=== PATIENT | female | born 1940 | race Caucasian/White ===

== ENCOUNTER 2017-06-11 18:12 | Emergency (ER) | payer MEDICARE, OTHER ==
[~2017-06-11] VITALS: Ht 165.1 cm; Wt 65.8 kg
[~2017-06-11 18:12] MED LIST: ACID RELIEF PO; ALL DAY ALLERGY10 M1 PO; ALUM320SU PO; AMLO5; AMLO5 PO; ARCAPTA NEOHAL75 MCG INH; ASCO1ER; ASPI81EC; Albuterol2.5 MG/0.5 INH; Augmentin 875-1 EACH PO; BUDE10.22 INH; BUME1 PO; Biotin1 MG PO; CARV6.25 PO; CEPH500 PO; CETI10; CHOL10002 PO; CLON.1 PO; CLON.2TP TOP; CLON.5 PO; CLOP75 PO; CYAN1000 PO; Coumadin3 MG PO; DEXL60CA3 PO; DICL25ER; Desyrel50 MG PO; FISH1000; FLUSAL2505; FURO40; FURO40 PO; HYDMOR2 PO; LEVSOD88 PO; LOSA25 PO; LOSA50; Lopressor 25 mg25 MG PO; MECL12.5 PO; MEGA BIOTIN10000 MCG PO; METO50ER; MIRT15 PO; Mag-Al Liquid30 ML PO; Norco 5-325 Ta1 EACH PO; OXYC10TA19 PO; PARO10 PO; POTCHL10ER; POTCHL10ER PO; POTCHL20ER PO; PRED20 PO; PROM25 PO; Prilosec Otc20 MG PO; Prinivil10 MG PO; RANI150 PO; ROSU10TA; SIMV40 PO; SPIR25; SPIR25 PO; SUCR1 PO; Simvastatin40 MG PO; TIOT18; TORSE20 PO; TRAM50 PO; TRAZ50; TRAZ50 PO; VENL75; Valium10 MG PO; Valium5 MG PO; Vitamin B Comple1 EA PO; WARF3 PO; XARELTO15 MG PO; Zantac150 MG PO; Zofran Odt4 MG PO; Zofran Odt4 MG SL; Zofran Odt8 MG SL
[2018-02-10] MEDS ORDERED: Percocet 5-3251 EACH PO (05:18)
[2018-04-09] MEDS ORDERED: METPRE4DP PO (19:31)
[2018-04-09] MEDS ORDERED: HYDR1TAB94 PO (19:31)
== END 2017-06-11 19:48 | disposition home or self-care (01) ==
LOC: ER 18:12
DX: S06.0X1A Concussion with loss of consciousness of 30 minutes or less, initial encounter (principal); S00.83XA Contusion of other part of head, initial encounter; I48.91 Unspecified atrial fibrillation; J44.9 Chronic obstructive pulmonary disease, unspecified; E03.9 Hypothyroidism, unspecified; E78.5 Hyperlipidemia, unspecified; Z86.718 Personal history of other venous thrombosis and embolism; W22.8XXA Striking against or struck by other objects, initial encounter
CPT/HCPCS: 70450; 73030; 73130; 96374; 96375; 99284; J2405; J3010

== ENCOUNTER 2017-08-22 07:27 | Inpatient (IN) | payer MEDICARE, OTHER ==
[~2017-08-22] VITALS: Ht 162.6 cm; Wt 79.6 kg
[2017-08-22 08:22] LABS: BASOPHILS ABSOLUTE AUTO 0.05 K/mm3 (0.00-0.23); BASOPHILS PERCENT AUTO 1 % (0-2); EOSINOPHILS ABSOLUTE AUTO 0.11 K/mm3 (0.00-0.68); EOSINOPHILS PERCENT AUTO 1 % (0-6); Hematocrit 41.5 % (33.0-51.0); Hemoglobin 13.2 g/dL (11.5-16.0); IMMATURE GRAN ABSOLUTE AUTO 0.18 K/mm3 (0.00-0.10); IMMATURE GRAN PERCENT AUTO 2 % (0-1); LYMPHOCYTES ABSOLUTE AUTO 1.17 K/mm3 (0.84-5.20); LYMPHOCYTES PERCENT AUTO 11 % (21-46); MONOCYTES ABSOLUTE AUTO 0.61 K/mm3 (0.16-1.47); MONOCYTES PERCENT AUTO 6 % (4-13); Mean Corpuscular HGB 30.3 pg (26.0-34.0); Mean Corpuscular HGB Conc 31.8 g/dL (31.5-36.5); Mean Corpuscular Volume 95 fL (80-100); NEUTROPHILS ABSOLUTE AUTO 8.43 K/mm3 (1.96-9.15); NEUTROPHILS PERCENT AUTO 80 % (41-73); Platelet Count 163 K/mm3 (150-400); RDW Coefficient Variation 14.6 % (11.7-14.2); RDW Standard Deviation 50.8 fL (35.1-46.3); Red Blood Cell Count 4.35 M/mm3 (3.80-5.20); White Blood Cell Count 10.55 K/mm3 (4.00-11.30)
[2017-08-22 08:43] LABS: Albumin, Blood 3.6 g/dL (3.4-5.0); Albumin/Globulin Ratio 0.9 (0.8-1.8); Bilirubin, Total 0.6 mg/dL (0.1-1.0); Bun/Creatinine Ratio 18.8 (12.0-20.0); Calcium, Blood 9.7 mg/dL (8.5-10.1); Creatinine, Blood 1.01 mg/dL (0.40-1.00); Globulin, Blood 3.9 g/dL (2.2-4.0); Potassium, Blood 4.3 mmol/L (3.5-5.5); Total Protein, Blood 7.5 g/dL (6.4-8.2); Troponin I 0.02 ng/mL (0.000-0.040)
[2017-08-22] MEDS ORDERED: IRON160 M1 PO (11:54)
[2017-08-22] MEDS ORDERED: ABAT250V (11:57)
[2017-08-22] MEDS ORDERED: PRED10 PO (11:57)
[2017-08-22] MEDS ORDERED: HYDR1TAB94 PO (11:57)
[2017-08-22] MEDS ORDERED: ESCI20 PO (12:03)
[2017-08-23 04:58] LABS: BASOPHILS ABSOLUTE AUTO 0.01 K/mm3 (0.00-0.23); BASOPHILS PERCENT AUTO 0 % (0-2); EOSINOPHILS PERCENT AUTO 0 % (0-6); Hematocrit 39.6 % (33.0-51.0); IMMATURE GRAN ABSOLUTE AUTO 0.11 K/mm3 (0.00-0.10); IMMATURE GRAN PERCENT AUTO 1 % (0-1); LYMPHOCYTES ABSOLUTE AUTO 0.72 K/mm3 (0.84-5.20); LYMPHOCYTES PERCENT AUTO 8 % (21-46); MONOCYTES ABSOLUTE AUTO 0.17 K/mm3 (0.16-1.47); MONOCYTES PERCENT AUTO 2 % (4-13); Mean Corpuscular HGB 30.2 pg (26.0-34.0); Mean Corpuscular HGB Conc 32.8 g/dL (31.5-36.5); Mean Platelet Volume 9.7 fL (9.1-12.4); NEUTROPHILS ABSOLUTE AUTO 8.37 K/mm3 (1.96-9.15); NEUTROPHILS PERCENT AUTO 89 % (41-73); Platelet Count 142 K/mm3 (150-400); RDW Coefficient Variation 14.6 % (11.7-14.2); RDW Standard Deviation 49.7 fL (35.1-46.3); White Blood Cell Count 9.38 K/mm3 (4.00-11.30)
[2017-08-23 04:59] LABS: Mean Corpuscular Volume 92 fL (80-100)
[2017-08-23 05:22] LABS: Albumin, Blood 3.3 g/dL (3.4-5.0); Anion Gap 5 mmol/L (6-16); Blood Urea Nitrogen 16 mg/dL (8-24); Bun/Creatinine Ratio 19.2 (12.0-20.0); CO2, Blood 35 mmol/L (21-32); Calcium, Blood 10.1 mg/dL (8.5-10.1); Chloride, Blood 97 mmol/L (98-108); Creatinine, Blood 0.84 mg/dL (0.40-1.00); Glomerular Filtration Rate >60 (60-); Glucose, Blood 139 mg/dL (70-99); Potassium, Blood 3.6 mmol/L (3.5-5.5); Sodium, Blood 137 mmol/L (136-145)
[2017-08-24 05:30] LABS: BASOPHILS ABSOLUTE AUTO 0.01 K/mm3 (0.00-0.23); BASOPHILS PERCENT AUTO 0 % (0-2); EOSINOPHILS PERCENT AUTO 0 % (0-6); Hematocrit 38.4 % (33.0-51.0); Hemoglobin 12.6 g/dL (11.5-16.0); IMMATURE GRAN ABSOLUTE AUTO 0.09 K/mm3 (0.00-0.10); IMMATURE GRAN PERCENT AUTO 1 % (0-1); LYMPHOCYTES PERCENT AUTO 6 % (21-46); MONOCYTES ABSOLUTE AUTO 0.32 K/mm3 (0.16-1.47); MONOCYTES PERCENT AUTO 3 % (4-13); Mean Corpuscular HGB 30.2 pg (26.0-34.0); Mean Corpuscular HGB Conc 32.8 g/dL (31.5-36.5); Mean Corpuscular Volume 92 fL (80-100); Mean Platelet Volume 9.5 fL (9.1-12.4); NEUTROPHILS ABSOLUTE AUTO 10.27 K/mm3 (1.96-9.15); NEUTROPHILS PERCENT AUTO 90 % (41-73); Platelet Count 146 K/mm3 (150-400); RDW Coefficient Variation 14.6 % (11.7-14.2); RDW Standard Deviation 49.1 fL (35.1-46.3); Red Blood Cell Count 4.17 M/mm3 (3.80-5.20); White Blood Cell Count 11.39 K/mm3 (4.00-11.30)
[2017-08-24 05:43] LABS: Anion Gap 6 mmol/L (6-16); Blood Urea Nitrogen 22 mg/dL (8-24); Bun/Creatinine Ratio 30.5 (12.0-20.0); CO2, Blood 36 mmol/L (21-32); Calcium, Blood 9.8 mg/dL (8.5-10.1); Chloride, Blood 94 mmol/L (98-108); Creatinine, Blood 0.72 mg/dL (0.40-1.00); Glomerular Filtration Rate >60 (60-); Glucose, Blood 131 mg/dL (70-99); Potassium, Blood 3.3 mmol/L (3.5-5.5); Sodium, Blood 136 mmol/L (136-145)
[2017-08-25 06:17] LABS: BASOPHILS ABSOLUTE AUTO 0.01 K/mm3 (0.00-0.23); BASOPHILS PERCENT AUTO 0 % (0-2); EOSINOPHILS PERCENT AUTO 0 % (0-6); Hematocrit 37.4 % (33.0-51.0); Hemoglobin 12.1 g/dL (11.5-16.0); IMMATURE GRAN ABSOLUTE AUTO 0.06 K/mm3 (0.00-0.10); IMMATURE GRAN PERCENT AUTO 1 % (0-1); LYMPHOCYTES ABSOLUTE AUTO 0.55 K/mm3 (0.84-5.20); LYMPHOCYTES PERCENT AUTO 6 % (21-46); MONOCYTES ABSOLUTE AUTO 0.37 K/mm3 (0.16-1.47); MONOCYTES PERCENT AUTO 4 % (4-13); Mean Corpuscular HGB Conc 32.4 g/dL (31.5-36.5); Mean Corpuscular Volume 93 fL (80-100); Mean Platelet Volume 10.1 fL (9.1-12.4); NEUTROPHILS ABSOLUTE AUTO 8.47 K/mm3 (1.96-9.15); NEUTROPHILS PERCENT AUTO 90 % (41-73); Platelet Count 144 K/mm3 (150-400); RDW Coefficient Variation 14.5 % (11.7-14.2); RDW Standard Deviation 49.7 fL (35.1-46.3); Red Blood Cell Count 4.03 M/mm3 (3.80-5.20); White Blood Cell Count 9.46 K/mm3 (4.00-11.30)
[2017-08-25 06:33] LABS: Anion Gap 6 mmol/L (6-16); Blood Urea Nitrogen 29 mg/dL (8-24); Bun/Creatinine Ratio 38.8 (12.0-20.0); CO2, Blood 37 mmol/L (21-32); Chloride, Blood 94 mmol/L (98-108); Creatinine, Blood 0.75 mg/dL (0.40-1.00); Glomerular Filtration Rate >60 (60-); Glucose, Blood 149 mg/dL (70-99); Potassium, Blood 3.3 mmol/L (3.5-5.5); Sodium, Blood 137 mmol/L (136-145)
[2017-08-25] MEDS ORDERED: ACET325 PO (11:45)
[2017-08-25] MEDS ORDERED: GUAI600T33 PO (11:45)
[2017-08-25] MEDS ORDERED: GABA300 (11:46)
[2017-08-25] MEDS ORDERED: ALBU3IS INH (11:46)
[2017-08-25] MEDS ORDERED: SACC250C PO (11:47)
[2017-08-25] MEDS ORDERED: LIDOCAINE1 EACH TOP (11:47)
[2017-08-25] MEDS ORDERED: AZIT250 PO (11:48)
[2017-08-25] MEDS ORDERED: Zanaflex4 M1 PO (11:48)
[2017-08-25] MEDS ORDERED: CEFP200 PO (11:49)
[2017-08-25] MEDS ORDERED: TRAM50 PO (11:50)
== END 2017-08-25 15:08 | disposition home health service (06) | DRG 193 ==
LOC: ER 07:27 → MEDS 10:28 → ENPENDDIS 08-25 12:00 → MEDS 08-25 15:08
PROVIDERS: Emergency Medicine; Hospitalist
DX: J18.9 Pneumonia, unspecified organism (principal); J96.21 Acute and chronic respiratory failure with hypoxia; J91.8 Pleural effusion in other conditions classified elsewhere; J44.0 Chronic obstructive pulmonary disease with (acute) lower respiratory infection; J44.1 Chronic obstructive pulmonary disease with (acute) exacerbation; I25.10 Atherosclerotic heart disease of native coronary artery without angina pectoris; K21.9 Gastro-esophageal reflux disease without esophagitis; G47.33 Obstructive sleep apnea (adult) (pediatric); I48.2 Chronic atrial fibrillation; I27.20 Pulmonary hypertension, unspecified; I10 Essential (primary) hypertension; I08.1 Rheumatic disorders of both mitral and tricuspid valves; E78.5 Hyperlipidemia, unspecified; E03.9 Hypothyroidism, unspecified; M54.12 Radiculopathy, cervical region; Z79.01 Long term (current) use of anticoagulants; Z79.899 Other long term (current) drug therapy; Z95.1 Presence of aortocoronary bypass graft; Z86.73 Personal history of transient ischemic attack (TIA), and cerebral infarction without residual deficits; Z86.718 Personal history of other venous thrombosis and embolism; Z87.891 Personal history of nicotine dependence; Z88.5 Allergy status to narcotic agent; Z88.8 Allergy status to other drugs, medicaments and biological substances
CPT/HCPCS: 36415; 71046; 71250; 72040; 73030; 80048; 80053; 80069; 82947; 83880; 84484; 85025; 87070; 87205; 93005; 93010; 94640; 94644; 94660; 94667; 94762; 96365; 96375; 97110; 97116; 97161; 97166; 97530; 97535; 99285; G8978; G8979; G8987; G8988; J0360; J0456; J0696; J2920; J2930; J3010; J7030; J7050

== ENCOUNTER → 2017-08-31 | Outpatient (CLI) | payer MEDICARE, OTHER ==
[~2017-08-31] MED LIST changes: +ABAT250V; +ACET325 PO; +ALBU3IS INH; +AZIT250 PO; +CEFP200 PO; +ESCI20 PO; +GABA300; +GUAI600T33 PO; +HYDR1TAB94 PO; +IRON160 M1 PO; +LIDOCAINE1 EACH TOP; +PRED10 PO; +SACC250C PO; +Zanaflex4 M1 PO
[2017-08-31 16:53] LABS: Hematocrit 39.8 % (33.0-51.0); Hemoglobin 12.4 g/dL (11.5-16.0); Mean Corpuscular HGB 30.4 pg (26.0-34.0); Mean Corpuscular HGB Conc 31.2 g/dL (31.5-36.5); Mean Platelet Volume 9.8 fL (9.1-12.4); Platelet Count 254 K/mm3 (150-400); RDW Coefficient Variation 14.5 % (11.7-14.2); RDW Standard Deviation 51.9 fL (35.1-46.3); Red Blood Cell Count 4.08 M/mm3 (3.80-5.20); White Blood Cell Count 11.69 K/mm3 (4.00-11.30)
[2017-08-31 17:05] LABS: Mean Corpuscular Volume 98 fL (80-100)
[2017-08-31 17:15] LABS: Alanine Aminotransfer (ALT/SGP 57 U/L (12-78); Albumin, Blood 3.2 g/dL (3.4-5.0); Albumin/Globulin Ratio 0.8 (0.8-1.8); Alk Phos 75 U/L (50-136); Anion Gap 2 mmol/L (6-16); Aspartate Aminotrans (AST/SGOT 38 U/L (12-37); Bilirubin, Total 0.5 mg/dL (0.1-1.0); Blood Urea Nitrogen 26 mg/dL (8-24); Bun/Creatinine Ratio 31.9 (12.0-20.0); CO2, Blood 40 mmol/L (21-32); Calcium, Blood 10.1 mg/dL (8.5-10.1); Chloride, Blood 95 mmol/L (98-108); Creatinine, Blood 0.82 mg/dL (0.40-1.00); Globulin, Blood 3.8 g/dL (2.2-4.0); Glomerular Filtration Rate >60 (60-); Glucose, Blood 128 mg/dL (70-99); Potassium, Blood 4.8 mmol/L (3.5-5.5); Sodium, Blood 137 mmol/L (136-145)
== END | disposition home or self-care (01) ==
LOC: LAB HH 15:58
PROVIDERS: Family Medicine
DX: J44.9 Chronic obstructive pulmonary disease, unspecified (principal); I50.20 Unspecified systolic (congestive) heart failure
CPT/HCPCS: 80053; 85027

== ENCOUNTER 2017-09-17 16:22 | Emergency (ER) | payer MEDICARE, OTHER ==
[~2017-09-17] VITALS: Ht 160 cm; Wt 68.0 kg
== END 2017-09-17 19:11 | disposition home or self-care (01) ==
LOC: ER 16:22
DX: S00.03XA Contusion of scalp, initial encounter (principal); S70.02XA Contusion of left hip, initial encounter; W18.30XA Fall on same level, unspecified, initial encounter; Z88.5 Allergy status to narcotic agent; Z88.8 Allergy status to other drugs, medicaments and biological substances; Z79.899 Other long term (current) drug therapy; Z79.52 Long term (current) use of systemic steroids; Z79.2 Long term (current) use of antibiotics; J44.9 Chronic obstructive pulmonary disease, unspecified; E03.9 Hypothyroidism, unspecified; I25.2 Old myocardial infarction; Z86.73 Personal history of transient ischemic attack (TIA), and cerebral infarction without residual deficits; Z87.891 Personal history of nicotine dependence
CPT/HCPCS: 36415; 70450; 73502

== ENCOUNTER 2017-10-31 12:38 | Emergency (ER) | payer MEDICARE, OTHER ==
[~2017-10-31] VITALS: Ht 160 cm; Wt 72.1 kg
[2017-10-31 13:23] LABS: BASOPHILS ABSOLUTE AUTO 0.07 K/mm3 (0.00-0.23); BASOPHILS PERCENT AUTO 1 % (0-2); EOSINOPHILS PERCENT AUTO 3 % (0-6); Hematocrit 40.5 % (33.0-51.0); Hemoglobin 12.8 g/dL (11.5-16.0); IMMATURE GRAN ABSOLUTE AUTO 0.05 K/mm3 (0.00-0.10); IMMATURE GRAN PERCENT AUTO 1 % (0-1); LYMPHOCYTES ABSOLUTE AUTO 1.37 K/mm3 (0.84-5.20); LYMPHOCYTES PERCENT AUTO 17 % (21-46); MONOCYTES ABSOLUTE AUTO 0.65 K/mm3 (0.16-1.47); MONOCYTES PERCENT AUTO 8 % (4-13); Mean Corpuscular HGB Conc 31.6 g/dL (31.5-36.5); Mean Corpuscular Volume 95 fL (80-100); Mean Platelet Volume 9.5 fL (9.1-12.4); NEUTROPHILS ABSOLUTE AUTO 5.72 K/mm3 (1.96-9.15); NEUTROPHILS PERCENT AUTO 71 % (41-73); Platelet Count 248 K/mm3 (150-400); RDW Coefficient Variation 13.9 % (11.7-14.2); RDW Standard Deviation 48.4 fL (35.1-46.3); Red Blood Cell Count 4.27 M/mm3 (3.80-5.20); White Blood Cell Count 8.06 K/mm3 (4.00-11.30)
[2017-10-31 13:48] LABS: Alanine Aminotransfer (ALT/SGP 31 U/L (12-78); Albumin, Blood 3.8 g/dL (3.4-5.0); Albumin/Globulin Ratio 1.1 (0.8-1.8); Alk Phos 69 U/L (50-136); Anion Gap 6 mmol/L (6-16); Aspartate Aminotrans (AST/SGOT 21 U/L (12-37); Bilirubin, Total 0.6 mg/dL (0.1-1.0); Blood Urea Nitrogen 19 mg/dL (8-24); Bun/Creatinine Ratio 18.8 (12.0-20.0); CO2, Blood 35 mmol/L (21-32); Calcium, Blood 9.9 mg/dL (8.5-10.1); Chloride, Blood 97 mmol/L (98-108); Creatinine, Blood 1.01 mg/dL (0.40-1.00); Globulin, Blood 3.6 g/dL (2.2-4.0); Glomerular Filtration Rate 56 (60-); Glucose, Blood 97 mg/dL (70-99); Potassium, Blood 3.7 mmol/L (3.5-5.5); Sodium, Blood 138 mmol/L (136-145); Total Protein, Blood 7.4 g/dL (6.4-8.2); Troponin I <0.015 ng/mL (0.000-0.040)
[2017-10-31] MEDS ORDERED: ONDA4ODT MM (14:12)
[2017-10-31] MEDS ORDERED: CLIN150 PO (14:13)
[2017-10-31] MEDS ORDERED: Protonix40 MG PO (15:52)
== END 2017-10-31 16:44 | disposition home or self-care (01) ==
LOC: ER 12:38
PROVIDERS: Emergency Medicine
DX: I48.91 Unspecified atrial fibrillation (principal); R07.0 Pain in throat; J44.9 Chronic obstructive pulmonary disease, unspecified; E03.9 Hypothyroidism, unspecified; I25.2 Old myocardial infarction; Z91.041 Radiographic dye allergy status; Z88.5 Allergy status to narcotic agent; Z88.8 Allergy status to other drugs, medicaments and biological substances; Z79.899 Other long term (current) drug therapy; Z86.73 Personal history of transient ischemic attack (TIA), and cerebral infarction without residual deficits; Z87.891 Personal history of nicotine dependence; Z79.52 Long term (current) use of systemic steroids
CPT/HCPCS: 36415; 71046; 80053; 84484; 85025; 93005; 93010; 99284

== ENCOUNTER → 2018-01-25 | Outpatient (CLI) | payer MEDICARE, OTHER ==
[~2018-01-25] MED LIST changes: +CLIN150 PO; +ONDA4ODT MM; +Protonix40 MG PO
== END | disposition home or self-care (01) ==
LOC: PLD 13:42 → LAB SHORT 13:42
DX: D48.5 Neoplasm of uncertain behavior of skin (principal)
CPT/HCPCS: 88305

== ENCOUNTER 2018-05-09 11:58 | Emergency (ER) | payer MEDICARE, OTHER ==
[~2018-05-09] VITALS: Ht 157.5 cm; Wt 63.5 kg
[~2018-05-09 11:58] MED LIST changes: +METPRE4DP PO; +Percocet 5-3251 EACH PO
[2018-05-09 12:54] LABS: BASOPHILS ABSOLUTE AUTO 0.06 K/mm3 (0.00-0.23); BASOPHILS PERCENT AUTO 1 % (0-2); EOSINOPHILS ABSOLUTE AUTO 0.14 K/mm3 (0.00-0.68); EOSINOPHILS PERCENT AUTO 2 % (0-6); Hematocrit 36.4 % (33.0-51.0); Hemoglobin 10.4 g/dL (11.5-16.0); IMMATURE GRAN ABSOLUTE AUTO 0.03 K/mm3 (0.00-0.10); IMMATURE GRAN PERCENT AUTO 0 % (0-1); LYMPHOCYTES ABSOLUTE AUTO 1.23 K/mm3 (0.84-5.20); LYMPHOCYTES PERCENT AUTO 16 % (21-46); MONOCYTES ABSOLUTE AUTO 0.62 K/mm3 (0.16-1.47); MONOCYTES PERCENT AUTO 8 % (4-13); Mean Corpuscular HGB 24.1 pg (26.0-34.0); Mean Corpuscular HGB Conc 28.6 g/dL (31.5-36.5); Mean Corpuscular Volume 85 fL (80-100); Mean Platelet Volume 10.2 fL (9.1-12.4); NEUTROPHILS ABSOLUTE AUTO 5.87 K/mm3 (1.96-9.15); NEUTROPHILS PERCENT AUTO 74 % (41-73); Platelet Count 206 K/mm3 (150-400); RDW Coefficient Variation 16.7 % (11.7-14.2); RDW Standard Deviation 51.4 fL (35.1-46.3); Red Blood Cell Count 4.31 M/mm3 (3.80-5.20); White Blood Cell Count 7.95 K/mm3 (4.00-11.30)
[2018-05-09 13:06] LABS: Albumin, Blood 3.7 g/dL (3.4-5.0); Albumin/Globulin Ratio 1.1 (0.8-1.8); Bilirubin, Total 0.6 mg/dL (0.1-1.0); Bun/Creatinine Ratio 32.3 (12.0-20.0); Creatinine, Blood 1.24 mg/dL (0.40-1.00); Globulin, Blood 3.5 g/dL (2.2-4.0); Potassium, Blood 4.4 mmol/L (3.5-5.5); Total Protein, Blood 7.2 g/dL (6.4-8.2)
[2018-05-09 13:08] LABS: International Normalized Ratio 1.72; Prothrombin Time Results 17.2 Sec (9.7-11.5)
[2018-05-09] MEDS ORDERED: Ultram50 MG PO (14:22)
[2018-05-09] MEDS ORDERED: Zofran4 MG PO (14:22)
[2018-05-09 14:31] LABS: Bilirubin, Urine Neg (Neg); Blood, Urine 3+ (Neg); Glucose Qualitative, Urine Neg (Neg); Ketones, Urine Neg (Neg); Leukocyte Esterase, Urine 2+ (Neg); Nitrite, Urine Neg (Neg); Protein, Urine 2+ (Neg); Urobilinogen, Urine NORM (Normal)
[2018-05-09 15:11] LABS: Appearance, Urine Hazy (Clear); Color, Urine Yellow (P-Yellow)
[2018-05-09 15:12] LABS: Squamous Epithelial Cells Mod /hpf (Few)
[2018-05-09 15:13] LABS: Bacteria Few /hpf
== END 2018-05-09 14:45 | disposition home or self-care (01) ==
LOC: ER 11:58
PROVIDERS: Emergency Medicine; Physician Assistant
DX: S12.112A Nondisplaced Type II dens fracture, initial encounter for closed fracture (principal); S52.502A Unspecified fracture of the lower end of left radius, initial encounter for closed fracture; S00.83XA Contusion of other part of head, initial encounter; W18.30XA Fall on same level, unspecified, initial encounter; Z88.5 Allergy status to narcotic agent; Z88.8 Allergy status to other drugs, medicaments and biological substances; Z79.899 Other long term (current) drug therapy; Z79.52 Long term (current) use of systemic steroids; J44.9 Chronic obstructive pulmonary disease, unspecified; E03.9 Hypothyroidism, unspecified; Z86.73 Personal history of transient ischemic attack (TIA), and cerebral infarction without residual deficits; I25.2 Old myocardial infarction; Z95.1 Presence of aortocoronary bypass graft; Z87.891 Personal history of nicotine dependence
CPT/HCPCS: 29125; 36415; 70450; 71045; 72125; 73110; 80053; 81001; 85025; 85610; 85730; 87086; 93005; 93010; 96374; 96375; 99284-25; J1885; J2405; J3010; L0160

== ENCOUNTER → 2018-06-14 | Outpatient (CLI) | payer MEDICARE, OTHER ==
[~2018-06-14] MED LIST changes: +Ultram50 MG PO; +Zofran4 MG PO
[2018-06-14 19:02] LABS: BASOPHILS ABSOLUTE AUTO 0.07 K/mm3 (0.00-0.23); BASOPHILS PERCENT AUTO 1 % (0-2); EOSINOPHILS ABSOLUTE AUTO 0.27 K/mm3 (0.00-0.68); EOSINOPHILS PERCENT AUTO 4 % (0-6); Hemoglobin 11.3 g/dL (11.5-16.0); IMMATURE GRAN ABSOLUTE AUTO 0.03 K/mm3 (0.00-0.10); IMMATURE GRAN PERCENT AUTO 0 % (0-1); LYMPHOCYTES PERCENT AUTO 14 % (21-46); MONOCYTES ABSOLUTE AUTO 0.49 K/mm3 (0.16-1.47); MONOCYTES PERCENT AUTO 7 % (4-13); Mean Corpuscular Volume 83 fL (80-100); Mean Platelet Volume 10.8 fL (9.1-12.4); NEUTROPHILS PERCENT AUTO 73 % (41-73); Platelet Count 288 K/mm3 (150-400); RDW Coefficient Variation 17.6 % (11.7-14.2); RDW Standard Deviation 53.1 fL (35.1-46.3); White Blood Cell Count 6.96 K/mm3 (4.00-11.30)
== END | disposition home or self-care (01) ==
LOC: LAB 18:11 → LAB HH 18:11
PROVIDERS: Family Medicine
DX: Z79.01 Long term (current) use of anticoagulants (principal); Z51.81 Encounter for therapeutic drug level monitoring; T45.515A Adverse effect of anticoagulants, initial encounter; I48.91 Unspecified atrial fibrillation; S12.112D Nondisplaced Type II dens fracture, subsequent encounter for fracture with routine healing
CPT/HCPCS: 82728; 83540; 83550; 85025

== ENCOUNTER 2018-07-08 00:59 | Inpatient (IN) | payer MEDICARE, OTHER ==
[~2018-07-08] VITALS: Ht 160 cm; Wt 77.2 kg
[~2018-07-08 00:59] MED LIST changes: -Desyrel50 MG PO; +TRAZ100 PO
[2018-07-08 02:54] LABS: BASOPHILS ABSOLUTE AUTO 0.08 K/mm3 (0.00-0.23); BASOPHILS PERCENT AUTO 1 % (0-2); EOSINOPHILS ABSOLUTE AUTO 0.26 K/mm3 (0.00-0.68); EOSINOPHILS PERCENT AUTO 2 % (0-6); Hematocrit 24.6 % (33.0-51.0); Hemoglobin 7.2 g/dL (11.5-16.0); IMMATURE GRAN ABSOLUTE AUTO 0.07 K/mm3 (0.00-0.10); IMMATURE GRAN PERCENT AUTO 1 % (0-1); LYMPHOCYTES ABSOLUTE AUTO 1.21 K/mm3 (0.84-5.20); LYMPHOCYTES PERCENT AUTO 11 % (21-46); MONOCYTES ABSOLUTE AUTO 0.72 K/mm3 (0.16-1.47); MONOCYTES PERCENT AUTO 7 % (4-13); Mean Corpuscular HGB 24.6 pg (26.0-34.0); Mean Corpuscular HGB Conc 29.3 g/dL (31.5-36.5); Mean Corpuscular Volume 84 fL (80-100); Mean Platelet Volume 9.7 fL (9.1-12.4); NEUTROPHILS ABSOLUTE AUTO 8.76 K/mm3 (1.96-9.15); NEUTROPHILS PERCENT AUTO 79 % (41-73); Platelet Count 334 K/mm3 (150-400); RDW Standard Deviation 55.1 fL (35.1-46.3); Red Blood Cell Count 2.93 M/mm3 (3.80-5.20)
[2018-07-08 03:06] LABS: Albumin, Blood 3.1 g/dL (3.4-5.0); Bilirubin, Total 0.7 mg/dL (0.1-1.0); Bun/Creatinine Ratio 41.6 (12.0-20.0); Creatinine, Blood 1.13 mg/dL (0.40-1.00); Potassium, Blood 5.1 mmol/L (3.5-5.5); Total Protein, Blood 6.1 g/dL (6.4-8.2)
[2018-07-08 03:52] LABS: Source, Urine Clean Catch
[2018-07-08 03:54] LABS: Bilirubin, Urine Neg (Neg); Blood, Urine 5+ (Neg); Glucose Qualitative, Urine Neg (Neg); Ketones, Urine Neg (Neg); Leukocyte Esterase, Urine Neg (Neg); Nitrite, Urine Neg (Neg); Protein, Urine 1+ (Neg); Urobilinogen, Urine NORM (Normal)
[2018-07-08 04:10] LABS: Appearance, Urine Hazy (Clear); Color, Urine Yellow (P-Yellow)
[2018-07-08 04:11] LABS: Amorphous Light (0-Heavy); Bacteria Few /hpf; Red Blood Cells, Urine 0-2 /hpf (0-2); Squamous Epithelial Cells Few /hpf (Few); White Blood Cells, Urine Rare /hpf (0-5)
[2018-07-08 05:53] LABS: BASOPHILS ABSOLUTE AUTO 0.08 K/mm3 (0.00-0.23); BASOPHILS PERCENT AUTO 1 % (0-2); EOSINOPHILS ABSOLUTE AUTO 0.15 K/mm3 (0.00-0.68); EOSINOPHILS PERCENT AUTO 2 % (0-6); Hematocrit 20.5 % (33.0-51.0); IMMATURE GRAN ABSOLUTE AUTO 0.09 K/mm3 (0.00-0.10); IMMATURE GRAN PERCENT AUTO 1 % (0-1); LYMPHOCYTES PERCENT AUTO 16 % (21-46); MONOCYTES ABSOLUTE AUTO 0.51 K/mm3 (0.16-1.47); MONOCYTES PERCENT AUTO 5 % (4-13); Mean Corpuscular HGB 24.5 pg (26.0-34.0); Mean Corpuscular HGB Conc 29.3 g/dL (31.5-36.5); Mean Corpuscular Volume 84 fL (80-100); Mean Platelet Volume 9.6 fL (9.1-12.4); NEUTROPHILS ABSOLUTE AUTO 7.74 K/mm3 (1.96-9.15); NEUTROPHILS PERCENT AUTO 76 % (41-73); NRBC ABSOLUTE 0.03 K/mm3 (0.00-0.02); NRBC Auto 0.3 /100 WBC (0.0-0.2); Platelet Count 303 K/mm3 (150-400); RDW Standard Deviation 55.4 fL (35.1-46.3); Red Blood Cell Count 2.45 M/mm3 (3.80-5.20); White Blood Cell Count 10.17 K/mm3 (4.00-11.30)
[2018-07-08 06:32] LABS: Anion Gap 8 mmol/L (6-16); Blood Urea Nitrogen 45 mg/dL (8-24); Bun/Creatinine Ratio 47.3 (12.0-20.0); CO2, Blood 28 mmol/L (21-32); Calcium, Blood 8.6 mg/dL (8.5-10.1); Chloride, Blood 105 mmol/L (98-108); Creatinine, Blood 0.95 mg/dL (0.40-1.00); Glomerular Filtration Rate >60 (60-); Glucose, Blood 116 mg/dL (70-99); Potassium, Blood 5.1 mmol/L (3.5-5.5); Sodium, Blood 141 mmol/L (136-145)
[2018-07-08 06:35] LABS: Percent Saturation 5.9 % (15.0-50.0)
[2018-07-08 07:30] LABS: BASOPHILS ABSOLUTE AUTO 0.05 K/mm3 (0.00-0.23); BASOPHILS PERCENT AUTO 1 % (0-2); EOSINOPHILS ABSOLUTE AUTO 0.07 K/mm3 (0.00-0.68); EOSINOPHILS PERCENT AUTO 1 % (0-6); Hematocrit 21.4 % (33.0-51.0); Hemoglobin 6.2 g/dL (11.5-16.0); IMMATURE GRAN ABSOLUTE AUTO 0.06 K/mm3 (0.00-0.10); IMMATURE GRAN PERCENT AUTO 1 % (0-1); LYMPHOCYTES ABSOLUTE AUTO 1.17 K/mm3 (0.84-5.20); LYMPHOCYTES PERCENT AUTO 14 % (21-46); MONOCYTES ABSOLUTE AUTO 0.39 K/mm3 (0.16-1.47); MONOCYTES PERCENT AUTO 5 % (4-13); Mean Corpuscular HGB 24.6 pg (26.0-34.0); Mean Corpuscular Volume 85 fL (80-100); Mean Platelet Volume 9.5 fL (9.1-12.4); NEUTROPHILS ABSOLUTE AUTO 6.78 K/mm3 (1.96-9.15); NEUTROPHILS PERCENT AUTO 80 % (41-73); Platelet Count 278 K/mm3 (150-400); RDW Coefficient Variation 18.1 % (11.7-14.2); RDW Standard Deviation 56.1 fL (35.1-46.3); Red Blood Cell Count 2.52 M/mm3 (3.80-5.20); White Blood Cell Count 8.52 K/mm3 (4.00-11.30)
[2018-07-08 07:30] LABS: Calcium, Ionized (POC) 1.14 mmol/L (1.10-1.46); Chloride (POC) 98 mmol/L (98-108); Creatinine (POC) 1.1 mg/dL (0.6-1.0); Glucose (ISTAT POC) 120 mg/dL (70-99); Hemoglobin (POC) 6.5 g/dL (12.0-16.0); Potassium (POC) 5.1 mmol/L (3.5-5.5); Sodium (POC) 139 mmol/L (135-148); Total CO2 (POC) 30 mmol/L (21-32)
[2018-07-08] MEDS ORDERED: ONDA4 PO (11:07)
[2018-07-08] MEDS ORDERED: TRAM50 PO (11:26)
[2018-07-08 12:53] LABS: Hematocrit 20.5 % (33.0-51.0); Hemoglobin 6.2 g/dL (11.5-16.0)
--- NOTE | 2018-07-08 16:05 | NUR ---
PT HAS BEEN RECEIVING PRBC'S, THIS IS THE 2ND BAG TO INFUSE. PT'S VS HAVE REMAINED STABLE THROUGHOUT 2ND BAG INFUSION. PT CONTINUING TO BREATHE EASILY, PT RESTING IN BED. ERIBAN SITTING AT BEDSIDE THROUGHOUT WHOLE INFUSION. MELENA BOWEL MOVEMENTS HAVE DECREASED SINCE ADMISSION TO PCU. WILL CONTINUE TO MONITOR FOR REACTION TO BLOOD TRANSFUSION.
--- NOTE | 2018-07-08 17:58 | NUR ---
END OF SHIFT SUMMARY PT HAS HAD MULTIPLE DARK RED WATERY STOOLS WITH JELLOW CONSISTENCY CHUNKS. PT HAS BEEN ABLE TO GET TO BSC W/ STAFF ASSISTANCE FOR THIS. 2 PBRC'S INFUSED. PT'S VS HAVE REMAINED STABKLE DURING INFUSION AND POST INFUSION. PT HAS BEEN C/O OF PAIN IN NECK, HEADACHE, AND IN LEFT ABDOMEN. TREATED WITH SUBLIMAZE IN ED AND TYLENOL 650. DR. LARA HAS BEEN IN ROOM TO ASSESS GIB. [facility], PT WILL BE MADE NPO THIS PM. PT HAS REMAINED ON 2L NC T/O SHIFT. PT IN SOFT NECK COLLAR R/T RECENT FALL. PT IS FORGETFUL BUT VERY COOPERATIVE. PT IS ANXIOUS REGARDING CURRENT HEALTH SITUATION AND HOW SHE IS FEELING. PT C/O OF BEING VERY COLD DESPITE WARM BLANKETS AND TEMP BEING TURNED UP IN ROOM. PT AFEBRILE. PT HAS REMAINED IN AFIB T/O SHIFT, HR SHIFTS AROUND IN 90'S. PT ON CLEAR LIQUID DIET AT THIS TIME. WILL CONTINUE TO MONITOR PT UNTIL END OF SHIFT.
[2018-07-08 19:29] LABS: Hematocrit 21.2 % (33.0-51.0); Hemoglobin 6.6 g/dL (11.5-16.0)
--- NOTE | 2018-07-08 19:50 | NUR ---
ASSUMED CARE PT RESTING IN ROOM, APPEARS ANXIOUS. PER DAY SHIFT PT HAS BEEN ANXIOUS SINCE ARRIVAL TO UNIT. PT FEARFUL ABOUT HER DIAGNOSIS AND CURRENT ILLNESS. PT ALSO REPORTING CHRONIC ARTHRITIC PAIN IN SHOULD, AND KNEES, AND NEW ABD PAIN R/T DIAGNOSIS. RESP EVEN UNLABORED AND SLIGHTLY TACHYPNIC ON RA. SATS >92%. DENIES SOB OR CP. PT IS PALE COOL AND DRY. CALL LIGHT IS IN REACH. BED ALARM IS ON DUE TO PT BEING FORGETFUL OF USING CALL LIGHT FOR HELP TO GET OUT OF BED. PT RECEIVED 2 UNITS OF PRBCS BEFORE SHIFT CHANGE AND HAS BEEN WEAK D/T GI BLEED.
[2018-07-09 03:59] LABS: BASOPHILS ABSOLUTE AUTO 0.06 K/mm3 (0.00-0.23); BASOPHILS PERCENT AUTO 1 % (0-2); EOSINOPHILS ABSOLUTE AUTO 0.05 K/mm3 (0.00-0.68); EOSINOPHILS PERCENT AUTO 1 % (0-6); Hematocrit 25.6 % (33.0-51.0); Hemoglobin 8.2 g/dL (11.5-16.0); IMMATURE GRAN ABSOLUTE AUTO 0.05 K/mm3 (0.00-0.10); IMMATURE GRAN PERCENT AUTO 1 % (0-1); LYMPHOCYTES ABSOLUTE AUTO 1.55 K/mm3 (0.84-5.20); LYMPHOCYTES PERCENT AUTO 16 % (21-46); MONOCYTES ABSOLUTE AUTO 0.99 K/mm3 (0.16-1.47); MONOCYTES PERCENT AUTO 11 % (4-13); Mean Corpuscular HGB 27.7 pg (26.0-34.0); Mean Corpuscular Volume 87 fL (80-100); Mean Platelet Volume 9.5 fL (9.1-12.4); NEUTROPHILS ABSOLUTE AUTO 6.76 K/mm3 (1.96-9.15); NEUTROPHILS PERCENT AUTO 72 % (41-73); NRBC ABSOLUTE 0.05 K/mm3 (0.00-0.02); NRBC Auto 0.5 /100 WBC (0.0-0.2); Platelet Count 196 K/mm3 (150-400); RDW Standard Deviation 50.8 fL (35.1-46.3); Red Blood Cell Count 2.96 M/mm3 (3.80-5.20); White Blood Cell Count 9.46 K/mm3 (4.00-11.30)
[2018-07-09 04:21] LABS: Alanine Aminotransfer (ALT/SGP 13 U/L (12-78); Albumin, Blood 2.7 g/dL (3.4-5.0); Albumin/Globulin Ratio 1.4 (0.8-1.8); Alk Phos 49 U/L (50-136); Anion Gap 6 mmol/L (6-16); Aspartate Aminotrans (AST/SGOT 25 U/L (12-37); Bilirubin, Total 2.1 mg/dL (0.1-1.0); Blood Urea Nitrogen 31 mg/dL (8-24); Bun/Creatinine Ratio 36.7 (12.0-20.0); CO2, Blood 31 mmol/L (21-32); Calcium, Blood 8.7 mg/dL (8.5-10.1); Chloride, Blood 107 mmol/L (98-108); Creatinine, Blood 0.85 mg/dL (0.40-1.00); Glomerular Filtration Rate >60 (60-); Glucose, Blood 129 mg/dL (70-99); Magnesium, Blood 1.5 mg/dL (1.6-2.4); Potassium, Blood 3.8 mmol/L (3.5-5.5); Sodium, Blood 144 mmol/L (136-145); Total Protein, Blood 4.7 g/dL (6.4-8.2)
--- NOTE | 2018-07-09 05:34 | NUR ---
SHIFT SUMMARY PT SLEEPING IN ROOM COMFORTABLY. PT HGB AT SHIFT CHANGE CAME BACK AT 6.6 UP FROM 6.2. PROVIDER CALLED AND QUAN UNIT OF PRBC'S WAS OPRDERED AND ADMINISTERED TO PT. PT TOLERATED BLOOD TRANSFUSION WELL. PT REMAINED AFEBRILE AND LS REMAINED CLEAR T/O. PT DID COMPLAIN OF CHRONIC ARTHRITIS PAIN, AND ABD T/O NIGHT. WAS MEDICATED PER EMAR. PT SPENT MOST OF THE NIGHT IN RECLINER TO ALLOW FOR LEGS TO DANGLE FOR COMFORT. PROTONIX GTT INFUSING IN PIV. PT BACK IN BED THIS AM AFTER PAIN MEDICATION TO TAKE PRESSURE OFF OF COCCYX, WAS NOTED TO BE RED AFTER LAST BM. PT IN BED DEQUAN PILLOW FLOATING UNDER ONE HIP TO REDUCE PRESSURE. BED ALARM ON FOR SAFETY. CALL LIGHT IN REACH.
--- NOTE | 2018-07-09 09:16 | NUR ---
NURSING PCU DAYSHIFT: Assumed care of pt at approx 0700. A/O, cooperative w/care, anxious and fearful at times. C/O chronic discomfort of b/l shoulders, treating w/meds as ordered, k-pad in place. Skin is pale and fragile, chronic rash to BLE. General weakness noted, repositions and transfers w/one staff assist. Tele in place, aflutter w/HR 80's, no c/o CP/pressure, trace BLE edema. L/S cta t/o, O2 sat stable on 2L NC, denies dyspnea, no noted cough. Abd soft this a.m., mildly tender w/palp, BT+, voiding w/o difficulty. PIV x2, protonix gtt infusing. S/O currently at bedside, plan of care discussed. Pt and s/o deny any current needs or questions at this time. Awaiting rounding from PMD and GI, call light in reach, cont to monitor for any changes.
[2018-07-09 10:09] LABS: Hematocrit 23.8 % (33.0-51.0); Hemoglobin 7.6 g/dL (11.5-16.0)
--- NOTE | 2018-07-09 17:41 | NUR ---
NURSING PCU DAYSHIFT SUMMARY: Pt has done well t/o the shift w/no s/s of active bleeding and no melena noted, H/H stable. Family at bedside t/o majority of the day, update provided, plan of care discussed. Seen by GI and PMD, plan for medical management at this time d/t neck fx and c-collar requirement. Pt continues to c/o chronic pain which is being treated w/meds as ordered. Spent much of the shift OOB in a recliner, tolerated well. Pt remains on a CL diet, protonix gtt and clinimix infusing as ordered. Denies any current questions/needs, call light in reach, cont to monitor until rpt is given to NOC RN.
[2018-07-09 17:52] LABS: Hematocrit 25.2 % (33.0-51.0)
[2018-07-10 04:10] LABS: BASOPHILS ABSOLUTE AUTO 0.06 K/mm3 (0.00-0.23); BASOPHILS PERCENT AUTO 1 % (0-2); EOSINOPHILS ABSOLUTE AUTO 0.39 K/mm3 (0.00-0.68); EOSINOPHILS PERCENT AUTO 5 % (0-6); IMMATURE GRAN ABSOLUTE AUTO 0.09 K/mm3 (0.00-0.10); IMMATURE GRAN PERCENT AUTO 1 % (0-1); LYMPHOCYTES ABSOLUTE AUTO 1.28 K/mm3 (0.84-5.20); LYMPHOCYTES PERCENT AUTO 16 % (21-46); MONOCYTES ABSOLUTE AUTO 0.83 K/mm3 (0.16-1.47); MONOCYTES PERCENT AUTO 11 % (4-13); Mean Corpuscular HGB 27.5 pg (26.0-34.0); Mean Corpuscular HGB Conc 30.4 g/dL (31.5-36.5); Mean Corpuscular Volume 90 fL (80-100); Mean Platelet Volume 9.8 fL (9.1-12.4); NEUTROPHILS ABSOLUTE AUTO 5.27 K/mm3 (1.96-9.15); NEUTROPHILS PERCENT AUTO 67 % (41-73); NRBC ABSOLUTE 0.13 K/mm3 (0.00-0.02); NRBC Auto 1.6 /100 WBC (0.0-0.2); Platelet Count 175 K/mm3 (150-400); RDW Coefficient Variation 16.9 % (11.7-14.2); RDW Standard Deviation 55.2 fL (35.1-46.3); Red Blood Cell Count 2.55 M/mm3 (3.80-5.20); White Blood Cell Count 7.92 K/mm3 (4.00-11.30)
[2018-07-10 04:27] LABS: Anion Gap 4 mmol/L (6-16); Blood Urea Nitrogen 25 mg/dL (8-24); Bun/Creatinine Ratio 32.4 (12.0-20.0); CO2, Blood 31 mmol/L (21-32); Calcium, Blood 8.7 mg/dL (8.5-10.1); Chloride, Blood 108 mmol/L (98-108); Creatinine, Blood 0.77 mg/dL (0.40-1.00); Glomerular Filtration Rate >60 (60-); Glucose, Blood 113 mg/dL (70-99); Phosphorus, Blood 2.4 mg/dL (2.5-4.9); Potassium, Blood 4.2 mmol/L (3.5-5.5); Sodium, Blood 143 mmol/L (136-145)
--- NOTE | 2018-07-10 04:45 | NUR ---
PROVIDER CONTACTED- PT WITH DROP IN HEMAGLOBIN TO 7.[address] GOMEZ CONTACTED AND ORDERS RECEIVED TO TRANSFUSE ONE UNIT PRBCS. WILL INPUT ORDER AND ADMINISTER.
--- NOTE | 2018-07-10 06:30 | NUR ---
SHIFT SUMMARY- PT HAS REMAINED AOX4 THROUGHOUT SHIFT. VSS. PLEASANT AND COOPERATIVE WITH CARE. PT CONTINUES TO AMBULATE WITH ONE PERSON ASSIST WITHOUT DIFFICULTY. NO BOWEL MOVEMENTS THROUGHOUT THE NIGHT, REPORTS SLIGHT ABDOMINAL TENDERNESS ONLY ON PALPATION THAT HAS DECREASED SINCE ARRIVAL. DENIES NAUSEA. PT WITH MULTIPLE REPORTS OF PAIN THROUGH NECK, SHOULDERS AND BACK THAT DECREASES WITH ORDERED MEDICATIONS, REPOSITIONING AND HEAT THERAPY. PT HAS RESTED THROUGHOUT SOME OF THE NIGHT. O2 SATS HAVE REMAINED >90% ON 2L VIA NASAL CANNULA. PROTONIX DRIP AND CLINIMIX HAVE CONTINUED TO INFUSE THROUGHOUT THE NIGHT, 1 UNIT PRBC'S INFUSING AT THIS TIME- PT TOLERATING WELL. WILL CONTINUE TO MONITOR AND REPORT TO ONCOMING SHIFT RN. BED IN LOW POSITION, CALL LIGHT IN REACH. BED ALARM SET FOR SAFETY.
--- NOTE | 2018-07-10 14:03 | NUR ---
Spiritual care visit conducted. Patient was lying in bed and alert when I entered the room. Daughter, Cleo, was bedside. Therapeutic alliance was easily established and patient openly shared about her current medical condition, her struggles with her ra and the amazing love and support that surrounds the patient with through her family aand friends. I listened empathically, normalized her experience, facilitated a life review, explored spiritual beliefs, provided a calming presence and provided prayer. Patient responded well and displayed evidence of restored ra and reduced ra.
[2018-07-10 16:21] LABS: Hemoglobin 9.1 g/dL (11.5-16.0)
--- NOTE | 2018-07-10 19:31 | NUR ---
SHIFT SUMMARY PT RESTING IN BED THROUGHOUT THE DAY. ALERT AND ORIENTED X3. C/O NECK / RIGHT SHOULDER / HEAD PAIN 6-8/10, MEDICATED WITH PRN PAIN MEDS. LUNG SOUNDS CLEAR, DIMINISHED BASES. UP TO BEDSIDE COMMODE AND RECLINER THROUGHOUT THE DAY. 1+ PITTING EDEMA TO BLE. PT RECEIVED 1 UNIT PRBCs THIS AM AND TOLERATED WELL. DAUGHTER MENTIONS THAT PT HAS BEEN TEARFUL THROUGHOUT THE DAY. DR. LUCAS NOTIFIED, NEW ORDERS RECEIVED. WILL CONTINUE TO MONITOR.
--- NOTE | 2018-07-11 04:41 | NUR ---
PROVIDER CONTACTED PT CONTINUES TO HAVE MELENA X2 THIS EVENING, NO REPEAT H&H ORDERED FOR THIS AM. DR GOMEZ CONTACTED AND ORDERS RECEIVED FOR RECHECK OF H&H TO ENSURE HGB LEVEL REMAINS >7.5 PROGRESS NOTE.
[2018-07-11 05:34] LABS: Hematocrit 26.8 % (33.0-51.0); Hemoglobin 8.4 g/dL (11.5-16.0)
--- NOTE | 2018-07-11 06:17 | NUR ---
SHIFT SUMMARY- PT HAS REMAINED AOX4 THROUGHOUT SHIFT. VSS. PLEASANT AND COOPERATIVE WITH CARE. PT CONTINUES TO AMBULATE WITH STANDBY ASSIST TO THE BEDSIDE COMMODE WITHOUT DIFFICULTY. PT MEDICATED ONCE FOR PAIN, BUT REPORTS THAT PAIN HAS DECREASED WITH USE OF FOAM MATTRESS ON BED, REPOSITIONING, AND HEAT THERAPY. PT HAD TWO EPISODES OF MELENA THROUGHOUT THE NIGHT, REPEAT H&H DONE THIS AM. O2 SATS HAVE REMIANED >90% ON BASELINE 2L O2 VIA NASAL CANNULA. NO OTHER CHANGES FROM INITIAL ASSESSMENT. WILL CONTINUE TO MONITOR AND REPORT TO ONCOMING SHIFT RN. BED IN LOW POSITION, CALL LIGHT IN REACH.
--- NOTE | 2018-07-11 09:28 | NUR ---
TRANSFER NOTE PT C/O 10/09 RIGHT SHOULDER PAIN, MEDICATED WITH PRN PAIN MEDS, WHICH SEEMED TO HELP. PT STABLE FOR TRANSFER TO MEDICAL FLOOR. REPORT CALLED TO HUAN DOSS ON MEDICAL FLOOR.
--- NOTE | 2018-07-11 10:13 | NUR ---
PT ARRIVED TO UNIT VIA WHEELCHAIR. CLINIMIX RUNNING AT 100 ML/HR. ORDER TO DC CLINIMIX ONCE THI BAG IS COMPLETED. PT COMPLAINS OF RIGHT SHOULDER PAIN, WARM BLANKET IN PLACE. 20 GAUGE IN LEFT FOREARM, SALINE LOCKED. 20 GAUGE IN LEFT UPPER ARM, INFUSING. PT IS ALERT AND ORIENTED AND COOPERATIVE WITH CARE.
--- NOTE | 2018-07-11 17:01 | NUR ---
PT IS ALERT AND ORIENTED AND COOPERATIVE WITH CARE. SHE CALLS APPROPRIATELY. SHE HAD FAMILY VISITING MOST OF THE DAY. SHE LIVES AT HOME WITH HER . SHE HAS COMPLAINED OF RIGHT SHOULDER PAIN TODAY, TREATED PER EMAR, REPOSITIONING AND WITH HEAT THERAPY. SOME BLOOD VISIBLE AFTER A SCANT BM. 2L O2 VIA NC. C-COLLAR IN PLACE. ONE PERSON ASSIST TO BSC. FULL LIQUID DIET, POOR APETTIE TODAY. NO ACUTE CHANGES THIS SHIFT. WILL CONTINUE TO MONITOR.
--- NOTE | 2018-07-12 04:41 | NUR ---
SHIFT SUMMARY PT A/O. VERY EMOTIONAL THIS SHIFT. STARTED OUT SHIFT REPORTING THAT SHE WAS VERY PAINFUL. MEDICATED W/ 2 TABS 5/325 NORCOS AND REPLACED HEATING PAD WITH LARGER HEATING PAD TO COVER THE ENTIRE SURFACE OF HER BACK AND SHOULDERS. AFTER PT'S PAIN WAS IMPROVED SO DID HER MOOD. PT HAS C-COLLAR ON FROM A REPORTED FALL AT HOME BACK IN MAY. MEDICATED PT X 2 WITH 2 TABS NORCO. PT TRANSFERS WELL WITH ONE SBA TO BS. HAD ONE MEDIUM SIZED LOOSE MAROON STOOL. PT VERY CONCERNED ABOUT NOT BEING ABLE TO DO ENDOSCOPY DUE TO C-COLLAR. SOME REDNESS TO PT'S BOTTOM. ENCOURAGED PT TO REPOSITION SELF IN BED MORE FREQUENTLY. VSS. NO OTHER ACUTE CHANGES THIS SHIFT. WILL CONTINUE TO MONITOR AND REPORT TO DAY RN.
[2018-07-12 10:36] LABS: BASOPHILS PERCENT AUTO 1 % (0-2); EOSINOPHILS ABSOLUTE AUTO 0.47 K/mm3 (0.00-0.68); EOSINOPHILS PERCENT AUTO 4 % (0-6); Hematocrit 30.8 % (33.0-51.0); Hemoglobin 9.4 g/dL (11.5-16.0); IMMATURE GRAN ABSOLUTE AUTO 0.53 K/mm3 (0.00-0.10); IMMATURE GRAN PERCENT AUTO 5 % (0-1); LYMPHOCYTES ABSOLUTE AUTO 1.13 K/mm3 (0.84-5.20); LYMPHOCYTES PERCENT AUTO 10 % (21-46); MONOCYTES ABSOLUTE AUTO 0.96 K/mm3 (0.16-1.47); MONOCYTES PERCENT AUTO 9 % (4-13); Mean Corpuscular HGB 28.8 pg (26.0-34.0); Mean Corpuscular HGB Conc 30.5 g/dL (31.5-36.5); Mean Platelet Volume 10.2 fL (9.1-12.4); NEUTROPHILS ABSOLUTE AUTO 8.01 K/mm3 (1.96-9.15); NEUTROPHILS PERCENT AUTO 72 % (41-73); NRBC ABSOLUTE 0.33 K/mm3 (0.00-0.02); NRBC Auto 2.9 /100 WBC (0.0-0.2); Platelet Count 220 K/mm3 (150-400); RDW Coefficient Variation 19.6 % (11.7-14.2); RDW Standard Deviation 56.4 fL (35.1-46.3); Red Blood Cell Count 3.26 M/mm3 (3.80-5.20)
[2018-07-12 10:37] LABS: Mean Corpuscular Volume 95 fL (80-100)
--- NOTE | 2018-07-12 15:45 | NUR ---
RECIEVED CONSENT FROM CLIENT TO PROVIDE AND ASSIST CARE. CC
--- NOTE | 2018-07-12 17:35 | NUR ---
PT IS ALERT AND ORIENTED AND COOPERATIVE WITH CARE. SHE CAN MAKE HER NEEDS KNOWN. PT COMPLAINED OF MOUTH PAIN LAST NIGHT, DR. LUCAS WAS NOTIFIED THIS MORNING AND HE ORDERED XYLOCAINE. SHE COMPLAINED OF SHOULDER PAIN TODAY, TREATED PER EMAR WITH NORCO Q4H. HEATING PAD IN PLACE BEHIND RIGHT SHOULDER. HGB=9.4 THIS MORNING. C-COLLAR IN PLACE. ONE PERSON ASSIST TO BSC. DARK, LOOSE STOOL. DIET CHANGED TO TOLERATED. WILL CONTINUE TO MONITOR.
--- NOTE | 2018-07-13 04:57 | NUR ---
SHIFT SUMMARY PT CONTINUES TO HAVE SHOULDER DISCOMFORT. PT TX PER EMAR AND IS STILL USING K PAD WITH GOOD RESULT. PT HAS SLEPT OFF AND ON. GETTING UP TO USE BSC OCCASIONALLY. PT AT TIMES SITS ON SIDE OF BED DUE TO SHOULDER DISCOMFORT. PT STATES SITTING HELPS WITH DISCOMFORT. PT ALSO IS HAVING CONTINUED TONGUE DISCOMFORT. PT TX PER EMAR. RESULTS ARE GOOD BUT NO LONG ACTING. PT CURRENTLY WATCHING TV AND COMPLAINING OF TONGUE DISCOMFORT. WILL TX ORDERED. CALL LIGHT IN REACH.
[2018-07-13 11:23] LABS: BASOPHILS ABSOLUTE AUTO 0.11 K/mm3 (0.00-0.23); BASOPHILS PERCENT AUTO 1 % (0-2); EOSINOPHILS PERCENT AUTO 2 % (0-6); Hematocrit 32.2 % (33.0-51.0); Hemoglobin 9.6 g/dL (11.5-16.0); IMMATURE GRAN ABSOLUTE AUTO 0.48 K/mm3 (0.00-0.10); IMMATURE GRAN PERCENT AUTO 5 % (0-1); LYMPHOCYTES ABSOLUTE AUTO 1.14 K/mm3 (0.84-5.20); LYMPHOCYTES PERCENT AUTO 12 % (21-46); MONOCYTES PERCENT AUTO 12 % (4-13); Mean Corpuscular HGB 28.8 pg (26.0-34.0); Mean Corpuscular HGB Conc 29.8 g/dL (31.5-36.5); Mean Corpuscular Volume 97 fL (80-100); Mean Platelet Volume 9.9 fL (9.1-12.4); NEUTROPHILS ABSOLUTE AUTO 6.41 K/mm3 (1.96-9.15); NEUTROPHILS PERCENT AUTO 68 % (41-73); NRBC ABSOLUTE 0.39 K/mm3 (0.00-0.02); NRBC Auto 4.1 /100 WBC (0.0-0.2); Platelet Count 219 K/mm3 (150-400); RDW Coefficient Variation 20.6 % (11.7-14.2); RDW Standard Deviation 58.4 fL (35.1-46.3); Red Blood Cell Count 3.33 M/mm3 (3.80-5.20); White Blood Cell Count 9.44 K/mm3 (4.00-11.30)
[2018-07-13 11:41] LABS: Anion Gap 6 mmol/L (6-16); Blood Urea Nitrogen 22 mg/dL (8-24); CO2, Blood 31 mmol/L (21-32); Calcium, Blood 9.3 mg/dL (8.5-10.1); Chloride, Blood 102 mmol/L (98-108); Creatinine, Blood 0.67 mg/dL (0.40-1.00); Glomerular Filtration Rate >60 (60-); Glucose, Blood 102 mg/dL (70-99); Sodium, Blood 139 mmol/L (136-145)
[2018-07-13] MEDS ORDERED: HYDR1TAB94 PO (15:43)
[2018-07-13] MEDS ORDERED: NYST100000 MM (15:46)
[2018-07-13] MEDS ORDERED: Xylocaine5 M1 MM (15:47)
[2018-07-13] MEDS ORDERED: GAVILAX17 GM PO (15:48)
[2018-07-13] MEDS ORDERED: SENN187 PO (15:49)
[2018-07-13] MEDS ORDERED: PANT40 PO (15:49)
[2018-07-13] MEDS ORDERED: PRED5EL MM (15:50)
[2018-07-13] MEDS ORDERED: Carafate1 GM/10 ML PO (15:52)
--- NOTE | 2018-07-13 18:14 | NUR ---
DISCHARGE PT DISCHARGED TO HOME. THIS RN EXPLAINED DISCHARGE INSTRUCTIONS AND MEDICATIONS TO PT AND PT'S DAUGHTER. THEY REPORT THEY UNDERSTAND. IV REMOVED WITHOUT DIFFICULTY. MEDICATIONS FAXED TO [facility]. WRITTEN PRESCRIPTION FOR PAIN MEDICATION GIVEN TO DAUGHTER TO FILL AT PHARMACY. PT TRANSFERRED TO PRIVATE VEHICLE VIA WHEELCHAIR BY [employer]. BELONGINGS WITH PT AND PT'S DAUGHTER.
--- NOTE | 2018-07-14 08:51 | NUR ---
CALL FROM [facility]: SPOKE WITH NATI AT 0745 THIS AM R/T RX WRITTEN BY DR. LUCAS ON 07/13/18 FOR 30 TABLETS OF NORCO 5/325. PER NATI, PT FILLED 120 TABLETS OF THE SAME MEDICATION/STRENGTH ON 07/04/18. PER DR. LUCAS, CANCEL THE 30 TABLETS HE WROTE FOR. SPOKE WITH FAUSTO AT [facility] AT 0850 AND UPDATED HER OF THIS INFORMATION.
== END 2018-07-13 18:12 | disposition home health service (06) | DRG 378 ==
LOC: ER 00:59 → ERHOLD 01:00 → PCU 01:00 → MEDS 07-11 09:54
PROVIDERS: Emergency Medicine; Hospitalist; Internal Medicine; ADMIT Hospitalist
PROC: 30233N1 Transfusion of Nonautologous Red Blood Cells into Peripheral Vein, Percutaneous Approach (ICD-10-PCS; principal; 2018-07-08)
DX: K27.4 Chronic or unspecified peptic ulcer, site unspecified, with hemorrhage (principal); D62 Acute posthemorrhagic anemia; J44.9 Chronic obstructive pulmonary disease, unspecified; E03.9 Hypothyroidism, unspecified; M19.90 Unspecified osteoarthritis, unspecified site; I25.2 Old myocardial infarction; Z86.73 Personal history of transient ischemic attack (TIA), and cerebral infarction without residual deficits; Z95.1 Presence of aortocoronary bypass graft; Z86.718 Personal history of other venous thrombosis and embolism; Z87.891 Personal history of nicotine dependence; I25.10 Atherosclerotic heart disease of native coronary artery without angina pectoris; I48.2 Chronic atrial fibrillation; G47.33 Obstructive sleep apnea (adult) (pediatric); I27.20 Pulmonary hypertension, unspecified; S12.110D Anterior displaced Type II dens fracture, subsequent encounter for fracture with routine healing; E83.42 Hypomagnesemia; E83.39 Other disorders of phosphorus metabolism; Y92.9 Unspecified place or not applicable
CPT/HCPCS: 36415; 36430; 72040; 72125; 80047; 80048; 80053; 81001; 82728; 83540; 83550; 83690; 83735; 84100; 85014; 85018; 85025; 86850; 86900; 86901; 86923; 93005; 93010; 94640; 94760; 96361; 96365; 96366; 96375; 96376; 99285-25; C9113; J2405; J2916; J3010; J3475; J7030; J7050; J7060; J7131; P9016

== ENCOUNTER 2018-07-21 13:52 | Emergency (ER) | payer MEDICARE, OTHER ==
[~2018-07-21] VITALS: Ht 160 cm; Wt 73.9 kg
[~2018-07-21 13:52] MED LIST changes: +Carafate1 GM/10 ML PO; +GAVILAX17 GM PO; +NYST100000 MM; +ONDA4 PO; +PANT40 PO; +PRED5EL MM; +SENN187 PO; +Xylocaine5 M1 MM
[2018-07-21 15:10] LABS: Hemoglobin 10.3 g/dL (11.5-16.0); Red Blood Cell Count 3.62 M/mm3 (3.80-5.20); White Blood Cell Count 4.74 K/mm3 (4.00-11.30)
[2018-07-21 15:11] LABS: BASOPHILS ABSOLUTE AUTO 0.05 K/mm3 (0.00-0.23); BASOPHILS PERCENT AUTO 1 % (0-2); EOSINOPHILS ABSOLUTE AUTO 0.08 K/mm3 (0.00-0.68); EOSINOPHILS PERCENT AUTO 2 % (0-6); IMMATURE GRAN ABSOLUTE AUTO 0.02 K/mm3 (0.00-0.10); IMMATURE GRAN PERCENT AUTO 0 % (0-1); LYMPHOCYTES ABSOLUTE AUTO 0.74 K/mm3 (0.84-5.20); LYMPHOCYTES PERCENT AUTO 16 % (21-46); MONOCYTES ABSOLUTE AUTO 0.32 K/mm3 (0.16-1.47); MONOCYTES PERCENT AUTO 7 % (4-13); Mean Corpuscular HGB 28.5 pg (26.0-34.0); Mean Corpuscular HGB Conc 29.4 g/dL (31.5-36.5); Mean Corpuscular Volume 97 fL (80-100); Mean Platelet Volume 10.8 fL (9.1-12.4); NEUTROPHILS ABSOLUTE AUTO 3.53 K/mm3 (1.96-9.15); NEUTROPHILS PERCENT AUTO 74 % (41-73); Platelet Count 234 K/mm3 (150-400); RDW Coefficient Variation 20.2 % (11.7-14.2); RDW Standard Deviation 69.4 fL (35.1-46.3)
[2018-07-21 15:41] LABS: Alanine Aminotransfer (ALT/SGP 25 U/L (12-78); Albumin, Blood 3.4 g/dL (3.4-5.0); Albumin/Globulin Ratio 1.1 (0.8-1.8); Alk Phos 92 U/L (50-136); Anion Gap 3 mmol/L (6-16); Aspartate Aminotrans (AST/SGOT 23 U/L (12-37); Bilirubin, Total 0.7 mg/dL (0.1-1.0); Blood Urea Nitrogen 21 mg/dL (8-24); Bun/Creatinine Ratio 26.4 (12.0-20.0); CO2, Blood 36 mmol/L (21-32); Calcium, Blood 9.5 mg/dL (8.5-10.1); Chloride, Blood 101 mmol/L (98-108); Globulin, Blood 3.1 g/dL (2.2-4.0); Glomerular Filtration Rate >60 (60-); Glucose, Blood 113 mg/dL (70-99); Potassium, Blood 4.1 mmol/L (3.5-5.5); Sodium, Blood 140 mmol/L (136-145); Total Protein, Blood 6.5 g/dL (6.4-8.2)
== END 2018-07-21 20:34 | disposition home or self-care (01) ==
LOC: ER 13:52
PROVIDERS: Physician Assistant
DX: I87.8 Other specified disorders of veins (principal); Z88.5 Allergy status to narcotic agent; Z88.8 Allergy status to other drugs, medicaments and biological substances; Z91.041 Radiographic dye allergy status; Z79.899 Other long term (current) drug therapy; J44.9 Chronic obstructive pulmonary disease, unspecified; E03.9 Hypothyroidism, unspecified; I25.2 Old myocardial infarction; Z86.73 Personal history of transient ischemic attack (TIA), and cerebral infarction without residual deficits; Z87.891 Personal history of nicotine dependence
CPT/HCPCS: 71046; 80053; 83880; 85025; 93005; 93010; 93970; 96374; 99284-25; J1940

== ENCOUNTER 2018-08-30 12:00 | Day surgery (SDC) | payer MEDICARE, OTHER | END 2018-08-30 22:44 | disposition home or self-care (01) | LOC: WOUND 12:00 | DX: E11.622 Type 2 diabetes mellitus with other skin ulcer (principal); L97.821 Non-pressure chronic ulcer of other part of left lower leg limited to breakdown of skin; L97.811 Non-pressure chronic ulcer of other part of right lower leg limited to breakdown of skin; I87.2 Venous insufficiency (chronic) (peripheral); J44.9 Chronic obstructive pulmonary disease, unspecified; I11.0 Hypertensive heart disease with heart failure; I50.9 Heart failure, unspecified; M06.9 Rheumatoid arthritis, unspecified; M19.90 Unspecified osteoarthritis, unspecified site; G47.33 Obstructive sleep apnea (adult) (pediatric); Z86.73 Personal history of transient ischemic attack (TIA), and cerebral infarction without residual deficits; Z88.8 Allergy status to other drugs, medicaments and biological substances; Z99.3 Dependence on wheelchair; Z87.891 Personal history of nicotine dependence | CPT/HCPCS: G0463 ==

== ENCOUNTER 2018-09-05 12:47 | Day surgery (SDC) | payer MEDICARE, OTHER | END 2018-09-05 23:03 | disposition home or self-care (01) | LOC: WOUND 12:47 | DX: E11.622 Type 2 diabetes mellitus with other skin ulcer (principal); L97.821 Non-pressure chronic ulcer of other part of left lower leg limited to breakdown of skin; L97.811 Non-pressure chronic ulcer of other part of right lower leg limited to breakdown of skin; I87.2 Venous insufficiency (chronic) (peripheral); J44.9 Chronic obstructive pulmonary disease, unspecified; G47.30 Sleep apnea, unspecified; I11.0 Hypertensive heart disease with heart failure; I50.9 Heart failure, unspecified; I25.10 Atherosclerotic heart disease of native coronary artery without angina pectoris; E11.51 Type 2 diabetes mellitus with diabetic peripheral angiopathy without gangrene; M06.9 Rheumatoid arthritis, unspecified; M19.90 Unspecified osteoarthritis, unspecified site ==

== ENCOUNTER 2018-09-07 00:11 | Day surgery (SDC) | payer MEDICARE, OTHER | END 2018-09-07 23:02 | disposition home or self-care (01) | LOC: WOUND 00:11 | DX: L97.821 Non-pressure chronic ulcer of other part of left lower leg limited to breakdown of skin (principal); L97.811 Non-pressure chronic ulcer of other part of right lower leg limited to breakdown of skin; I87.2 Venous insufficiency (chronic) (peripheral); G89.29 Other chronic pain; I10 Essential (primary) hypertension; J44.9 Chronic obstructive pulmonary disease, unspecified; I25.10 Atherosclerotic heart disease of native coronary artery without angina pectoris; G47.33 Obstructive sleep apnea (adult) (pediatric); Z99.3 Dependence on wheelchair; Z99.81 Dependence on supplemental oxygen ==

== ENCOUNTER 2018-09-11 13:30 | Day surgery (SDC) | payer MEDICARE, OTHER | END 2018-09-11 16:00 | disposition home or self-care (01) | LOC: WOUND 13:30 | DX: E11.622 Type 2 diabetes mellitus with other skin ulcer (principal); L97.821 Non-pressure chronic ulcer of other part of left lower leg limited to breakdown of skin; L97.811 Non-pressure chronic ulcer of other part of right lower leg limited to breakdown of skin; L97.229 Non-pressure chronic ulcer of left calf with unspecified severity; I87.2 Venous insufficiency (chronic) (peripheral); E11.51 Type 2 diabetes mellitus with diabetic peripheral angiopathy without gangrene; I11.0 Hypertensive heart disease with heart failure; I50.9 Heart failure, unspecified; I25.2 Old myocardial infarction; I25.119 Atherosclerotic heart disease of native coronary artery with unspecified angina pectoris; I48.91 Unspecified atrial fibrillation; J44.9 Chronic obstructive pulmonary disease, unspecified; G47.33 Obstructive sleep apnea (adult) (pediatric); D64.9 Anemia, unspecified; Z86.73 Personal history of transient ischemic attack (TIA), and cerebral infarction without residual deficits; Z99.81 Dependence on supplemental oxygen ==

== ENCOUNTER 2018-09-15 00:39 | Day surgery (SDC) | payer MEDICARE, OTHER | END 2018-09-15 23:24 | disposition home or self-care (01) | LOC: WOUND 00:39 | DX: E11.622 Type 2 diabetes mellitus with other skin ulcer (principal); L97.812 Non-pressure chronic ulcer of other part of right lower leg with fat layer exposed; L97.821 Non-pressure chronic ulcer of other part of left lower leg limited to breakdown of skin; I87.2 Venous insufficiency (chronic) (peripheral); E11.51 Type 2 diabetes mellitus with diabetic peripheral angiopathy without gangrene; I25.119 Atherosclerotic heart disease of native coronary artery with unspecified angina pectoris; I11.0 Hypertensive heart disease with heart failure; I50.9 Heart failure, unspecified; I48.91 Unspecified atrial fibrillation; I25.2 Old myocardial infarction; J44.9 Chronic obstructive pulmonary disease, unspecified; G47.33 Obstructive sleep apnea (adult) (pediatric); D64.9 Anemia, unspecified; Z86.73 Personal history of transient ischemic attack (TIA), and cerebral infarction without residual deficits ==

== ENCOUNTER 2018-09-18 07:55 | Day surgery (SDC) | payer MEDICARE, OTHER | END 2018-09-18 22:44 | disposition home or self-care (01) | LOC: WOUND 07:55 | DX: E11.622 Type 2 diabetes mellitus with other skin ulcer (principal); L97.821 Non-pressure chronic ulcer of other part of left lower leg limited to breakdown of skin; L97.811 Non-pressure chronic ulcer of other part of right lower leg limited to breakdown of skin; I87.2 Venous insufficiency (chronic) (peripheral); E11.51 Type 2 diabetes mellitus with diabetic peripheral angiopathy without gangrene; J44.9 Chronic obstructive pulmonary disease, unspecified; G47.30 Sleep apnea, unspecified; I11.0 Hypertensive heart disease with heart failure; I50.9 Heart failure, unspecified ==